=== PATIENT | male | born 1950 | race African-American/Black ===

== ENCOUNTER 2023-11-19 20:20 | Emergency (ER) | payer OTHER, MEDICAID ==
[~2023-11-19] VITALS: Ht 172.7 cm; Wt 85.0 kg
[2023-11-19 20:24] VITALS: O2SAT 99
[2023-11-19 22:40] LABS: BASOPHILS % 0.5 % (0.0-2.0); EOSINOPHILS % 2.6 % (0.0-5.0); MEAN CORPUSCULAR HEMOGLOBIN 26.4 pg (28.0-32.0); MEAN CORPUSCULAR HGB CONC 32.7 g/dL (31.0-37.0); MEAN CORPUSCULAR VOLUME 80.9 fL (80.0-94.0); MEAN PLATELET VOLUME 9.3 fl (7.4-10.4); MONOCYTES % 7.7 % (2.0-8.0); NEUTROPHILS % 65.2 % (40.0-76.0); PLATELET 126 x1000/uL (130-400); RED BLOOD CELL COUNT 5.31 mill/uL (4.7-6.1); RED CELL DISTRIBUTION WIDTH 15.8 % (11.6-14.6); WHITE BLOOD COUNT 6.4 x1000/uL (4.5-11.0)
[2023-11-19 22:42] LABS: CLARITY URINE CLEAR (CLEAR); COLOR URINE YELLOW (YELLOW); GLUCOSE URINE NEGATIVE (NEGATIVE); KETONES URINE NEGATIVE (NEGATIVE); LEUKOCYTE ESTERASE URINE 1+ (NEGATIVE); NITRITE URINE NEGATIVE (NEGATIVE); OCCULT BLOOD URINE TRACE (NEGATIVE); PROTEIN URINE NEGATIVE (NEGATIVE); UROBILINOGEN URINE 0.2 E.U./dL (0.2-1.0)
[2023-11-19 22:54] LABS: ALANINE AMINOTRANSFERASE 22 IU/L (10-49); ALBUMIN 4.1 g/dL (3.2-4.8); ASPARTATE AMINOTRANSFERASE 28 IU/L (<34); BILIRUBIN TOTAL 0.4 mg/dL (0.1-1.0); CARBON DIOXIDE 26 mEq/L (21-32); CHLORIDE 107 mEq/L (98-107); CREATININE 1.1 mg/dL (0.6-1.3); GLUCOSE 91 mg/dL (70-105); POTASSIUM 3.4 mEq/L (3.5-5.1); PROTEIN TOTAL 7.1 g/dL (6.0-8.3); SODIUM 140 mEq/L (136-145); TROPONIN I HIGH SENSITIVITY 50 ng/L (3.0-53); UREA NITROGEN BLOOD 14 mg/dL (9-23)
[2023-11-19 23:05] LABS: BACTERIA URINE TRACE; RBC URINE 0-2 /hpf (0-2); SQUAMOUS EPITHELIAL CELL URINE RARE /lpf (RARE/1+)
[2023-11-20 01:09] LABS: TROPONIN I HIGH SENSITIVITY 61 ng/L (3.0-53)
[2023-11-20] MEDS: ASPIRIN 325MG EC TABLET PO NR (01:48)
[2023-11-20] MEDS: ENOXAPARIN 80MG/0.8ML SYR SUBCUT NR (01:49)
[2023-11-20 03:48] VITALS: BP 180/78; PULSE 69; RESP 17; TEMP 98.3
== END 2023-11-20 04:42 | disposition short-term general hospital (02) ==
LOC: ER 20:20 → EDBEDREQTM 11-20 02:25 → EDBEDREQ 11-20 02:25 → ER 11-20 04:42 → CANBEDREQ 11-22 10:34
DX: I16.0 Hypertensive urgency (principal); I10 Essential (primary) hypertension; Z85.9 Personal history of malignant neoplasm, unspecified; Z86.73 Personal history of transient ischemic attack (TIA), and cerebral infarction without residual deficits
CPT/HCPCS: 99285; 70450; 71045; 80053; 81003; 83690; 85025; 84484 ×2; 36415 ×2; 93005; 96372; J1650